=== PATIENT | male | born 1950 | race Native Hawaiian/Other Pacific Islander ===

== ENCOUNTER 2017-01-05 09:06 | Outpatient (CLI) | payer OTHER ==
[~2017-01-05 09:06] MED LIST: ASA LO-DOSE81 MG PO; ASPIRIN325 M1 PO; CHLORTHALID25 MG PO; CLON0.1T16 PO; EZET10TA13 PO; HYDR25TA60 PO; HYDROCHLOROT12.5 M1 PO; LIPITOR80 MG PO; MICARDIS80 MG PO; ZESTRIL40 MG PO
[2017-01-05 10:07] LABS: PLATELET COUNT 238 K/uL (142-355)
[2017-01-05 10:22] LABS: POTASSIUM 4.1 mmol/L (3.6-5.2); SODIUM 140 mmol/L (136-145)
== END 2017-01-05 19:06 | disposition home or self-care (01) ==
LOC: LABW 09:06
PROVIDERS: Internal Medicine
DX: I10 Essential (primary) hypertension (principal); Z12.5 Encounter for screening for malignant neoplasm of prostate
CPT/HCPCS: 36415; 80053; 80061; 81000; 84153; 84443; 85027

== ENCOUNTER 2017-12-28 08:57 | Outpatient (CLI) | payer OTHER ==
[2017-12-28 09:20] LABS: PLATELET COUNT 224 K/uL (142-355)
[2017-12-28 09:42] LABS: POTASSIUM 4.2 mmol/L (3.6-5.2)
== END 2017-12-28 22:48 | disposition home or self-care (01) ==
LOC: LABW 08:57
PROVIDERS: Physician Assistant
DX: I10 Essential (primary) hypertension (principal); I77.89 Other specified disorders of arteries and arterioles; E78.4 Other hyperlipidemia; R35.1 Nocturia; E55.9 Vitamin D deficiency, unspecified; Z79.899 Other long term (current) drug therapy; Z51.81 Encounter for therapeutic drug level monitoring
CPT/HCPCS: 36415; 80053; 80061; 82306; 83036; 84153; 84439; 84443; 85027

== ENCOUNTER 2018-08-10 08:33 | Outpatient (CLI) | payer OTHER ==
[2018-08-10 09:05] LABS: PLATELET COUNT 227 K/uL (142-355)
[2018-08-10 09:23] LABS: POTASSIUM 4.1 mmol/L (3.6-5.2)
== END 2018-08-10 22:05 | disposition home or self-care (01) ==
LOC: LABW 08:33
PROVIDERS: Internal Medicine
DX: I10 Essential (primary) hypertension (principal)
CPT/HCPCS: 36415; 80053; 80061; 81000; 84443; 85027

== ENCOUNTER 2020-02-01 12:30 | Outpatient (CLI) | payer OTHER ==
[2020-02-01 13:00] LABS: PLATELET COUNT 193 K/uL (142-355)
[2020-02-01 13:27] LABS: POTASSIUM 4.3 mmol/L (3.6-5.2)
== END 2020-02-01 22:53 | disposition home or self-care (01) ==
LOC: LABW 12:30
PROVIDERS: Internal Medicine
DX: Z00.00 Encounter for general adult medical examination without abnormal findings (principal); Z12.5 Encounter for screening for malignant neoplasm of prostate; Z79.899 Other long term (current) drug therapy
CPT/HCPCS: 80053; 80061; 81000; 84153; 84439; 84443; 85027

== ENCOUNTER 2020-02-12 09:24 | Outpatient (CLI) | payer OTHER | END 2020-02-12 23:59 | disposition home or self-care (01) | LOC: CT 09:24 | DX: Z13.6 Encounter for screening for cardiovascular disorders (principal); Z12.2 Encounter for screening for malignant neoplasm of respiratory organs; R91.8 Other nonspecific abnormal finding of lung field; Z87.891 Personal history of nicotine dependence ==

== ENCOUNTER 2020-03-06 10:06 | Outpatient (CLI) | payer OTHER | END 2020-03-06 21:28 | disposition home or self-care (01) | LOC: US 10:06 | DX: E04.1 Nontoxic single thyroid nodule (principal) ==

== ENCOUNTER 2020-03-29 07:53 | Outpatient (CLI) | payer OTHER | END 2020-03-29 23:50 | disposition home or self-care (01) | LOC: RESP 07:53 | DX: R94.31 Abnormal electrocardiogram [ECG] [EKG] (principal); I10 Essential (primary) hypertension; I77.89 Other specified disorders of arteries and arterioles; E78.2 Mixed hyperlipidemia ==

== ENCOUNTER 2020-04-02 11:26 | Outpatient (CLI) | payer OTHER | END 2020-04-02 19:14 | disposition home or self-care (01) | LOC: RESP 11:26 | DX: R94.31 Abnormal electrocardiogram [ECG] [EKG] (principal); I10 Essential (primary) hypertension; I77.9 Disorder of arteries and arterioles, unspecified ==

== ENCOUNTER 2020-10-01 08:12 | Outpatient (CLI) | payer OTHER ==
[2020-10-01 08:34] LABS: PLATELET COUNT 186 K/uL (142-355)
[2020-10-01 08:47] LABS: POTASSIUM 4.1 mmol/L (3.6-5.2)
== END 2020-10-01 20:40 | disposition home or self-care (01) ==
LOC: LABW 08:12
PROVIDERS: ATTEND Internal Medicine
DX: I10 Essential (primary) hypertension (principal)
CPT/HCPCS: 36415; 80053; 80061; 81000; 84439; 84443; 85027

== ENCOUNTER 2020-10-15 12:57 | Outpatient (CLI) | payer OTHER | END 2020-10-15 21:19 | disposition home or self-care (01) | LOC: CT 12:57 | PROVIDERS: ATTEND Internal Medicine Sleep Medicine | DX: R09.02 Hypoxemia (principal); R91.1 Solitary pulmonary nodule ==

== ENCOUNTER 2020-12-03 08:03 | Outpatient (CLI) | payer OTHER | END 2020-12-03 19:31 | disposition home or self-care (01) | LOC: CT 08:03 | PROVIDERS: ATTEND Specialist | DX: I65.23 Occlusion and stenosis of bilateral carotid arteries (principal); Z86.73 Personal history of transient ischemic attack (TIA), and cerebral infarction without residual deficits | CPT/HCPCS: 36415; 82565; 84520; Q9963 ==

== ENCOUNTER 2021-10-31 09:05 | Outpatient (CLI) | payer OTHER | END 2021-10-31 20:56 | disposition home or self-care (01) | LOC: CT 09:05 | PROVIDERS: ATTEND Internal Medicine Sleep Medicine | DX: Z09 Encounter for follow-up examination after completed treatment for conditions other than malignant neoplasm (principal); Z87.891 Personal history of nicotine dependence ==

== ENCOUNTER 2022-01-30 07:11 | Outpatient (CLI) | payer OTHER ==
[2022-01-30 07:34] LABS: PLATELET COUNT 165 K/uL (142-355)
== END 2022-01-30 20:49 | disposition home or self-care (01) ==
LOC: LABW 07:11
PROVIDERS: ATTEND Internal Medicine
DX: I10 Essential (primary) hypertension (principal)
CPT/HCPCS: 36415; 80053; 80061; 81002; 84439; 84443; 85027

== ENCOUNTER 2022-08-11 11:59 | Outpatient (CLI) | payer OTHER ==
[2022-08-11 12:12] LABS: PLATELET COUNT 177 K/uL (142-355)
[2022-08-11 13:07] LABS: POTASSIUM 4.1 mmol/L (3.6-5.2)
== END 2022-08-11 19:38 | disposition home or self-care (01) ==
LOC: LAB 11:59
PROVIDERS: ATTEND Internal Medicine
DX: I10 Essential (primary) hypertension (principal); E78.49 Other hyperlipidemia; I25.10 Atherosclerotic heart disease of native coronary artery without angina pectoris
CPT/HCPCS: 80053; 80061; 84439; 84443; 85027

== ENCOUNTER 2022-11-03 07:58 | Outpatient (CLI) | payer OTHER | END 2022-11-03 20:50 | disposition home or self-care (01) | LOC: CT 07:58 | PROVIDERS: ATTEND Nurse Practitioner Family | DX: Z87.891 Personal history of nicotine dependence (principal) ==

== ENCOUNTER 2023-02-03 11:50 | Outpatient (CLI) | payer OTHER ==
[2023-02-03 12:11] LABS: PLATELET COUNT 172 K/uL (142-355)
[2023-02-03 13:34] LABS: POTASSIUM 4.2 mmol/L (3.6-5.2)
== END 2023-02-03 19:58 | disposition home or self-care (01) ==
LOC: LAB 11:50
PROVIDERS: ATTEND Internal Medicine
DX: N39.498 Other specified urinary incontinence (principal); I10 Essential (primary) hypertension
CPT/HCPCS: 80053; 80061; 84153; 85027

== ENCOUNTER 2023-03-31 11:16 | Outpatient (CLI) | payer OTHER ==
[2023-03-31 11:37] LABS: PLATELET COUNT 187 K/uL (142-355)
== END 2023-03-31 19:18 | disposition home or self-care (01) ==
LOC: LABW 11:16
PROVIDERS: ATTEND Internal Medicine
DX: K92.1 Melena (principal)
CPT/HCPCS: 36415; 85027